=== PATIENT | female | born 1950 | race Caucasian/White ===

== ENCOUNTER 2018-12-09 11:21 | Emergency (ER) | payer OTHER ==
--- OUTSIDE RECORDS SUMMARY | 2018-12-09 11:27 | XMS REPORT ---
:1950 Author Organization eClinicalWorks Care Team Providers Name Role Phone Srinivasa Fagan Provider Role Unavailable Allergies, Adverse Reactions, Alerts Substance Reaction Event Type Latex Info Not Available Drug Allergy Problems Problem Type Condition Code Onset Dates Condition Status Assessment Primary osteoarthritis of right M17.11 Active knee Assessment Pain, joint, knee, right M25.561 Active Assessment Morbid (severe) obesity due to E66.01 Active excess calories Assessment Body mass index (BMI) of 40.0-44.9 Z68.41 Active in adult Assessment Right sided sciatica M54.31 Active Problem Body mass index (BMI) of 40.0-44.9 Z68.41 Active in adult Problem Right sided sciatica M54.31 Active Problem Morbid (severe) obesity due to E66.01 Active excess calories Problem Pain, joint, knee, left M25.562 Active Problem Pain, joint, knee, right M25.561 Active Problem Primary osteoarthritis of left knee M17.12 Active Problem Primary osteoarthritis of right M17.11 Active knee Medications Medication Code Code Instructions Start End Date Status Dosage System Date Atorvastatin [facility] 99016-14 Active not defined Calcium 57-98 Cyclobenzaprine HCl NDC 0 Active not defined Duloxetine HCl [facility] 86685-81 Active not defined 50-[address] [facility] 66070-38 Active not defined 06-01 Pantoprazole Sodium [facility] 58508-66 Active not defined 84-01 Metformin HCl [facility] 68328-90 Active not defined 08-01 VESIcare [facility] 51849-60 Active not defined 51-01 Amlodipine Besylate NDC 0 [place] [address]-39 Active not defined 20-01 [place] [address]-80 Active not defined 20-01 Aspir-[address] [facility] 83867-65 Active not defined 27-26 Results No Known Results Summary Purpose eClinicalWorks Submission
--- OUTSIDE RECORDS SUMMARY | 2018-12-09 11:27 | XMS REPORT ---
[...] Start End Date Status Dosage System Date Duloxetine HCl [facility] 38738-45 Active not defined 50-33 VESIcare [facility] 73178-48 Active not defined 51-01 Metformin HCl [facility] 63591-04 Active not defined 08-01 Pantoprazole Sodium [facility] 87892-69 Active not defined 84-01 Amlodipine Besylate NDC 0 Active not defined Lyrica [facility] 99271-45 Active not defined 20-01 Atorvastatin [facility] 20576-23 Active not defined Calcium 57-98 Cyclobenzaprine HCl NDC 0 Active not defined Aspir-81 [facility] 56097-67 Active not defined 27-[address] [facility] 03739-89 Active not defined 06-01 Spironolactone [facility] 32211-50 Active not defined 20-01 Results No Known Results Summary Purpose eClinicalWorks Submission
--- OUTSIDE RECORDS SUMMARY | 2018-12-09 11:27 | XMS REPORT ---
:1950 Author Organization e[employer]Works Care Team Providers Name Role Phone Fagan Srinivasa Provider Role Unavailable Allergies, Adverse Reactions, Alerts Substance Reaction Event Type Latex Info Not Available Drug Allergy Problems Problem Type Condition Code Onset Dates Condition Status Assessment Right sided sciatica M54.31 Active Assessment Primary osteoarthritis of right M17.11 Active knee Assessment Primary osteoarthritis of left knee M17.12 Active Assessment Pain, joint, knee, left M25.562 Active Problem Pain, joint, knee, right M25.561 Active Problem Primary osteoarthritis of left knee M17.12 Active Problem Pain, joint, knee, left M25.562 Active Assessment Pain, joint, knee, right M25.561 Active Problem Primary osteoarthritis of right M17.11 Active knee Problem Right sided sciatica M54.31 Active Medications Medication Code Code Instructions Start End Date Status Dosage System Date Atorvastatin [facility] 80544-58 Active not defined Calcium 57-98 Pantoprazole Sodium [facility] 08773-90 Active not defined 84-[address] [facility] 22655-62 Active not defined 20-[address] [facility] 17657-61 Active not defined 20-01 Cyclobenzaprine HCl NDC 0 Active not defined VESIcare [facility] 30160-85 Active not defined 51-01 Amlodipine Besylate NDC 0 Active not defined Naproxen DR [facility] 57320-22 Active not defined 06-01 Aspir-[address] [facility] 38683-72 Active not defined 27-[address] [facility] 23227-74 Active not defined 08-[address] [facility] 49237-63 Active not defined 50-33 Results No Known Results Summary Purpose eClinicalWorks Submission
--- OUTSIDE RECORDS SUMMARY | 2018-12-09 11:27 | XMS REPORT ---
:1950 Author Organization [employer]Works Care Team Providers Name Role Phone Srinivasa Fagan Provider Role Unavailable Allergies No Known Allergies Problems Problem Type Condition Code Onset Dates Condition Status Problem Pain, joint, knee, right M25.561 Active Problem Primary osteoarthritis of left knee M17.12 Active Problem Pain, joint, knee, left M25.562 Active Problem Primary osteoarthritis of right M17.11 Active knee Problem Right sided sciatica M54.31 Active Medications No Known Medications Results No Known Results Summary Purpose [employer] Submission
--- OUTSIDE RECORDS SUMMARY | 2018-12-09 11:27 | XMS REPORT ---
:1950 Author Organization eClinicalWorks Care Team Providers Name Role Phone Srinivasa Fagan Provider Role Unavailable Allergies, Adverse Reactions, Alerts Substance Reaction Event Type Latex Info Not Available Drug Allergy Problems Problem Type Condition Code Onset Dates Condition Status Assessment Morbid (severe) obesity due to E66.01 Active excess calories Assessment Body mass index (BMI) of 40.0-44.9 Z68.41 Active in adult Assessment Primary osteoarthritis of right M17.11 Active knee Assessment Primary osteoarthritis of left knee M17.12 Active Assessment Pain, joint, knee, right M25.561 Active Assessment Pain, joint, knee, left M25.562 Active Problem Body mass index (BMI) of [...] End Date Status Dosage System Date Atorvastatin [facility] 06533-96 Active not defined Calcium 57-[address] [facility] 54541-23 Active not defined 06-01 VESIcare [facility] 58129-20 Active not defined 51-01 Aspir-81 [facility] 12843-15 Active not defined 27-26 Cyclobenzaprine HCl NDC 0 Active not defined Duloxetine HCl [facility] 19124-88 Active not defined 50-33 Lyrica [facility] 18031-62 Active not defined 20-01 Amlodipine Besylate NDC 0 Active not defined Spironolactone [facility] 03299-20 Active not defined 20-01 Metformin HCl [facility] 36150-17 Active not defined 08-01 Pantoprazole Sodium [facility] 90263-92 Active not defined 84-01 Results No Known Results Summary Purpose eClinicalWorks Submission
--- OUTSIDE RECORDS SUMMARY | 2018-12-09 11:27 | XMS REPORT ---
[...] Start End Date Status Dosage System Date VESIcare [facility] 52877-05 Active not defined 51-01 Amlodipine Besylate NDC 0 Active not defined Metformin HCl [facility] 15454-45 Active not defined 08-01 Atorvastatin [facility] 36757-15 Active not defined Calcium 57-98 Lyrica [facility] 38030-78 Active not defined 20-01 Spironolactone [facility] 70547-63 Active not defined 20-01 Cyclobenzaprine HCl NDC 0 Active not defined Pantoprazole Sodium [facility] 08132-93 Active not defined 84-[address] [facility] 15185-87 Active not defined 06-01 Duloxetine HCl [facility] 96842-01 Active not defined 50-33 Aspir-81 [facility] 31088-78 Active not defined 27-26 Results No Known Results Summary Purpose eClinicalWorks Submission
[2018-12-09 12:18] LABS: Absolute Lymphocytes (CBC) 0.9 K/uL (0.7-4.9); Absolute Monocytes 0.7 K/uL (0.1-1.3); Absolute Neutrophil 11.2 K/uL (1.8-8.0); Basophils % 0.4 % (0-1.3); Eosinophils % 1.8 % (0-4.4); Hematocrit 39.5 % (36.0-45.0); Lymphocytes % 6.6 % (15.3-44.8); MPV 8.1 fL (7.6-11.3); Monocytes % 5.5 % (3.3-12.3); RBC Red Blood Cell Count 4.42 M/uL (3.86-4.86)
[2018-12-09] MEDS ORDERED: DEXAMETHASONE 10 MG/ML VIAL ONE (12:18)
[2018-12-09] MEDS ORDERED: MEPERIDINE HCL 25 MG/0.5 ML ONE ×2 (12:18→14:55)
[2018-12-09 12:35] LABS: Blood Morphology Comment NOT SEEN (NOT SEEN); Platelet Estimate ADEQ
[2018-12-09] MEDS ORDERED: ACETAMINOPHEN 325 MG TABLET ONE (13:34)
--- NOTE | 2018-12-09 13:40 | RAD REPORT ---
EXAM DESCRIPTION: CT - C Spine Wo Con - 12/09/2018 1:07 pm CLINICAL HISTORY: Pain, numbness and tingling, fall history COMPARISON: None. TECHNIQUE: Axial 2 mm thick images of the cervical spine were obtained with sagittal and coronal rec onstruction images generated and reviewed. All CT scans are performed using dose optimization technique as appropriate and may include automated exposure control or mA/KV adjustment according to patient size. FINDINGS: Cervical bodies are normal in height. Slight reversal of the usual cervical lordosis with the apex at C5-6. C5-6 and C6-7 disc space narrowing with endplate spurring. Degenerative change pres ent at the dens C1 level. Left bony foraminal encroachment C3-4 from facet hypertrophy. Facet degener ative changes are present throughout the cervical spine. There is significant bony foraminal encroach ment on the right at C5-6 and [id number] bilateral C6-7 foraminal encroachment. No fracture or acute bony abnormality. No paraspinal mass or hematoma. Central canal detail is inherently limited on CT imaging. IMPRESSION: Cervical spine degenerative change present as detailed. No fracture or acute finding. Central canal detail is inherently limited.
--- NOTE | 2018-12-09 13:44 | RAD REPORT ---
EXAM DESCRIPTION: CT - Thoracic Spine W/o Cont - 12/09/2018 1:07 pm CLINICAL HISTORY: Recurring falls, back pain COMPARISON: None. TECHNIQUE: Axial 2 mm thick images of the cervical spine were obtained with sagittal and coronal rec onstruction images generated and reviewed. All CT scans are performed using dose optimization technique as appropriate and may include automated exposure control or mA/KV adjustment according to patient size. FINDINGS: Thoracic bodies are normal in height and normal in AP alignment. There is a minimal left c onvex curvature across the entire length of the thoracic spine that may be part of a long-standing sc oliosis or a positioning artifact. Mild disc space narrowing seen throughout the thoracic spine. No f racture or acute bony abnormality. No lytic, sclerotic or expansile bony destructive process. Central canal detail is inherently limited. No gross evidence for large disc herniation or canal stenosis. L arge anterior endplate spurs are present T5-T10. No paraspinal mass or hematoma. Central canal detail is inherently limited on CT imaging. No pneumothorax or pleural effusion. Atelectasis changes are present in the lung parenchyma. Imaged p ortions of the ribcage show no acute finding. No mediastinal mass or hematoma. IMPRESSION: Thoracic spine degenerative changes are present primarily T5-T10 region. No fracture or acute bone process seen. No gross evidence for large disc herniation or central canal abnormality. Central canal detail is inh erently limited.
--- NOTE | 2018-12-09 13:48 | RAD REPORT ---
EXAM DESCRIPTION: CT - Spine Lumbar Wo Con - 12/09/2018 1:07 pm CLINICAL HISTORY: Back pain, multiple falls COMPARISON: None. TECHNIQUE: Thin section axial imaging of the lumbar spine was performed. Sagittal and coronal recon struction images were generated and reviewed. All CT scans are performed using dose optimization technique as appropriate and may include automated exposure control or mA/KV adjustment according to patient size. FINDINGS: Lumbar bodies are normal in height. A very slight subluxation of L4 on L5 noted and slight retrolisthesis of L1 on L2. This is secondary to degenerative change. No compression fracture. No ly tic, sclerotic or expansile bony destructive process. There is no paraspinal mass present. Central canal detail is inherently limited. No gross evidence for disc herniation upper 3 lumbar leve ls. There is a broad-based bulging of disc material L4-5 that extends across the canal and into each exit foramen. Advanced facet joint degenerative change, ligamentous thickening and ligamentous calcificat ions all combine for significant central spinal stenosis and bilateral foraminal stenosis. L5-S1 shows disc space narrowing and degenerative gas in the disc space. There is disc bulge across t he central canal with questionable right paracentral small disc herniation. Central canal of these 2 inherently limited for adequate for thorough assessment. Facet joint degenerative changes are present . There is no central spinal stenosis. IMPRESSION: No fracture. No acute bone finding. L4-5 central spinal stenosis from disc bulge, facet hypertrophy, ligamentous thickening and ligamento us calcification. There is also foraminal stenosis at this level. L5-S1 disc bulge with questionable small right paracentral disc herniation. No central stenosis or fo raminal encroachment.
--- NOTE | 2018-12-09 13:59 | RAD REPORT ---
EXAM DESCRIPTION: RAD - Chest Single View - 12/09/2018 1:10 pm CLINICAL HISTORY: Dyspnea COMPARISON: November 2017 TECHNIQUE: AP portable chest image was obtained 1308 hours . FINDINGS: Portable technique and large body habitus limits detail. No focal lung parenchymal process seen. Heart and vasculature are normal. No measurable pleural effusion and no pneumothorax. No acute bony abnormality seen. No acute aortic findings suspected. IMPRESSION: No acute cardiopulmonary process.
[2018-12-09 14:18] LABS: Urine Blood TRACE (NEG); Urine Glucose NEGATIVE (NEG); Urine Protein 1+ (NEG); Urine pH 5.5 (5.0-7.0)
--- NOTE | 2018-12-09 14:42 | EDPHYS ---
Physician Documentation [facility] Name: Rene Covington Age: 68 yrs Sex: Female : 1950 Arrival Date: 12/09/2018 Time: 11:24 Bed 5 Private MD: Alhaji Haynes ED Physician Ector Kaye HPI: 12/09 11:52 This 68 yrs old Female presents to ER via Wheelchair with complaints of Knee rn Pain, Back Pain. 11:52 The patient presents with pain that is acute. The symptoms are located in the cervical internal controls consultant, thoracic spine and lumbar spine. Onset: The symptoms/episode began/occurred 3 day(s) ago. The pain does not radiate. Associated signs and symptoms: Pertinent positives: none Pertinent negatives: abdominal pain, chest pain, constipation, dysuria, fever, headache, hematuria, incontinence, nausea, numbness, tingling, urinary retention, vomiting, weakness. Modifying factors: The patient symptoms are alleviated by remaining still, the patient symptoms are aggravated by any movement. Severity of symptoms: At their worst the symptoms were mild, in the emergency department the symptoms are unchanged. The patient has experienced similar episodes in the past. Reports back pain, in spine, reports from neck to tailbone, no fever, no trauma, no weakness, no focal neurological complaint, is ambulatory, no new bowel/bladder problems. Reports chronic knee problems, gets injections, walks with cane, back hurts more with twisting and moving.. Historical: - Allergies: 11:51 Codeine; iw 11:51 venom-wasp; iw - Home Meds: 11:51 atorvastatin 20 mg oral tab once daily [Active]; Forskolin 500 mg daily [Active]; iw Garcinia Cambogia 200-500 mcg-mg oral tab daily [Active]; metformin 500 mg Oral tab 1 tab 2 times per day [Active]; cyclobenzaprine 10 mg Oral tab 1 tab 2 times per day [Active]; amlodipine 2.5 mg tab 1 tab once daily [Active]; spironolactone 25 mg Oral tab 1 tab once daily [Active]; Lyrica 75 mg Oral 2 times per day [Active]; aspirin 81 mg Oral TbEC 1 tab once daily [Active]; pantoprazole 40 mg oral TbEC 1 tab once daily [Active]; - PMHx: 11:51 Diabetes - NIDDM; Fibromyalgia; GERD; High Cholesterol; Hypertension; LOW POTASSIUM; iw - PSHx: 11:51 Hernia repair; Hysterectomy; Cholecystectomy; iw - Ebola Screening: : Patient negative for fever greater than or equal to 101.5 degrees Fahrenheit, and additional compatible Ebola Virus Disease symptoms Patient denies exposure to infectious person Patient denies travel to an Ebola-affected area in the 21 days before illness onset No symptoms or risks identified at this time. - Family history:: not pertinent. - Hospitalizations: : No recent hospitalization is reported. ROS: 11:52 Constitutional: Negative for fever, chills, and weight loss, Eyes: Negative for injury, rn pain, redness, and discharge, Neck: Negative for injury, pain, and swelling, Cardiovascular: Negative for chest pain, palpitations, and edema, Respiratory: Negative for shortness of breath, cough, wheezing, and pleuritic chest pain, Abdomen/GI: Negative for abdominal pain, nausea, vomiting, diarrhea, and constipation, Back: + back pain MS/Extremity: Negative for injury and deformity, Skin: Negative for injury, rash, and discoloration, Neuro: Negative for headache, weakness, numbness, tingling, and seizure. Exam: 11:52 Constitutional: This is a well developed, well nourished patient who is awake, alert, rn and in no acute distress. Head/Face: Normocephalic, atraumatic. Eyes: Pupils equal round and reactive to light, extra-ocular motions intact. Lids and lashes normal. Conjunctiva and sclera are non-icteric and not injected. Cornea within normal limits. Periorbital areas with no swelling, redness, or edema. Neck: Trachea midline, no thyromegaly or masses palpated, and no cervical lymphadenopathy. Supple, full range of motion without nuchal rigidity, or vertebral point tenderness. No Meningismus. Abdomen/GI: soft, non-tender Back: + tenderness along entire perispinal region, no stepoff or sign of trauma, no skin changes MS/ Extremity: Pulses equal, no cyanosis. Neurovascular intact. Full, normal range of motion. Equal circumference. Neuro: Awake and alert, GCS 15, oriented to person, place, time, and situation. Cranial nerves II-XII grossly intact. Motor strength 5/5 in all extremities. Sensory grossly intact. Cerebellar exam normal. Vital Signs: 11:50 BP 180 / 78; Pulse 105; Resp 20 S; Temp 100.9(O); Pulse Ox 97% on R/A; Weight 106.59 kg aa5 (R); Height 5 ft. 0 in. (152.40 cm) (R); Pain 6/10; 13:15 BP 154 / 80; Pulse 108; Resp 20 S; Pulse Ox 97% on R/A; aa5 13:15 Temp 101.4(O); aa5 14:30 BP 157 / 79; Pulse 102; Resp 18 S; Temp 99.5(O); Pulse Ox 96% on R/A; Pain 6/10; aa5 11:50 Body Mass Index 45.89 (106.59 kg, 152.40 cm) aa5 13:15 MD notified of increased temperature aa5 MDM: 11:41 Patient medically screened. rn 14:40 Differential diagnosis: arthritis, chronic back pain, Fatigue Osteoarthritis UTI, rn pneumonia. Data reviewed: vital signs, nurses notes, lab test result(s), radiologic studies, CT scan, plain films, and as a result, I will discharge patient. Counseling: I had a detailed discussion with the patient and/or guardian regarding: the historical points, exam findings, and any diagnostic results supporting the discharge/admit diagnosis, lab results, radiology results, the need for outpatient follow up, to return to the emergency department if symptoms worsen or persist or if there are any questions or concerns that arise at home. Response to treatment: the patient's symptoms have markedly improved after treatment, and as a result, I will discharge patient. Special discussion: I discussed with the patient/guardian in detail that at this point there is no indication for admission to the hospital. It is understood, however, that if the symptoms persist or worsen the patient needs to return immediately for re-evaluation. 12/09 11:50 Order name: CBC with Diff; Complete Time: 12:42 rn 12/09 11:50 Order name: Basic Metabolic Panel; Complete Time: 12:32 rn 12/09 11:50 Order name: CT C Spine; Complete Time: 14:00 rn 12/09 12:35 Order name: Manual Differential; Complete Time: 12:42 EDMS 12/09 13:51 Order name: Urine Dipstick--Ancillary (enter results); Complete Time: 14:25 eb 12/09 13:54 Order name: Urine Culture aa5 12/09 11:50 Order name: CT Thoracic Spine Wo Cont; Complete Time: 14:00 rn 12/09 11:50 Order name: CT Lumbar Spine Wo Con; Complete Time: 14:00 rn 12/09 12:43 Order name: XRAY Chest (1 view); Complete Time: 14:00 rn 12/09 11:50 Order name: Urine Dipstick-Ancillary (obtain specimen); Complete Time: 13:51 rn 12/09 11:50 Order name: IV Start; Complete Time: 12:12 rn Administered Medications: 12:15 Drug: Decadron - Dexamethasone 10 mg {Note: 5mg administered to right AC, swelling aa5 noted to site (see IV notes), remaining 5mg administered to right hand at 1220.} Route: IVP; Site: right antecubital; 12:30 Follow up: Response: No adverse reaction aa5 12:20 Drug: Demerol 25 mg Route: IVP; Site: right hand; aa5 12:30 Follow up: Response: No adverse reaction aa5 13:25 Drug: Tylenol 650 mg Route: PO; aa5 14:30 Follow up: Response: No adverse reaction; Temperature is decreased aa5 14:25 Drug: Rocephin - (cefTRIAXone) 1 grams {Note: given slow IVP per pharmacy at this time aa5 .} Route: IVPB; Infused Over: 30 mins; Site: right hand; 14:35 Follow up: Response: No adverse reaction aa5 14:47 Drug: Demerol 25 mg Route: IVP; Site: right hand; aa5 15:00 Follow up: Response: No adverse reaction; Pain is decreased aa5 Disposition: 12/09/18 14:41 Discharged to Home. Impression: Urinary tract infection, site not specified. - Condition is Stable. - Discharge Instructions: Urinary Tract Infection, Adult. - Prescriptions for Cyclobenzaprine 10 mg Oral Tablet - take 1 tablet by ORAL route every 8 hours As needed; 20 tablet. cefpodoxime 100 mg Oral Tablet - take 2 tablet by ORAL route every 12 hours for 10 days take with food; 40 tablet. - Medication Reconciliation Form, Thank You Letter, Antibiotic Education, Prescription Opioid Use form. - Follow up: Alhaji Haynes MD; When: 2 - 3 days; Reason: Recheck today's complaints, Re-evaluation by your physician. - Problem is new. - Symptoms have improved. Signatures: Dispatcher [employer] Charley Myrick RN RN iw Nieto, Roman, MD MD rn Calderon, Audri, RN RN aa5 Corrections: (The following items were deleted from the chart) 15:11 14:41 12/09/2018 14:41 Discharged to Home. Impression: Urinary tract infection, site aa5 not specified. Condition is Stable. Forms are Medication Reconciliation Form, Thank You Letter, Antibiotic Education, Prescription Opioid Use. Follow up: Alhaji Haynes; When: 2 - 3 days; Reason: Recheck today's complaints, Re-evaluation by your physician. Problem is new. Symptoms have improved. rn
--- NOTE | 2018-12-09 14:42 | ER ---
Nurse's Notes [facility] Name: Rene Covington Age: 68 yrs Sex: Female : 1950 Arrival Date: 12/09/2018 Time: 11:24 Bed 5 Private MD: Alhaji Haynes Diagnosis: Urinary tract infection, site not specified Presentation: 12/09 11:44 Presenting complaint: Patient states: ozzie knee pain since June after she had a fall, iw also c/o pain from neck to tailbone since June but has gotten worse over past 3 days, also c/o numbness to fingertips in both hands. Transition of care: patient was not received from another setting of care. Onset of symptoms was December 05, 2018. Risk Assessment: Do you want to hurt yourself or someone else? Patient reports no desire to harm self or others. Initial Sepsis Screen: Does the patient meet any 2 criteria? No. Patient's initial sepsis screen is negative. Does the patient have a suspected source of infection? No. Patient's initial sepsis screen is negative. Care prior to arrival: None. 11:44 Method Of Arrival: Wheelchair iw 11:44 Acuity: GLORY 3 iw Historical: - Allergies: 11:51 Codeine; iw 11:51 venom-wasp; iw - Home Meds: 11:51 atorvastatin 20 mg oral tab once daily [Active]; Forskolin 500 mg daily [Active]; iw Garcinia Cambogia 200-500 mcg-mg oral tab daily [Active]; metformin 500 mg Oral tab 1 tab 2 times per day [Active]; cyclobenzaprine 10 mg Oral tab 1 tab 2 times per day [Active]; amlodipine 2.5 mg tab 1 tab once daily [Active]; spironolactone 25 mg Oral tab 1 tab once daily [Active]; Lyrica 75 mg Oral 2 times per day [Active]; aspirin 81 mg Oral TbEC 1 tab once daily [Active]; pantoprazole 40 mg oral TbEC 1 tab once daily [Active]; - PMHx: 11:51 Diabetes - NIDDM; Fibromyalgia; GERD; High Cholesterol; Hypertension; LOW POTASSIUM; iw - PSHx: 11:51 Hernia repair; Hysterectomy; Cholecystectomy; iw - Ebola Screening: : Patient negative for fever greater than or equal to 101.5 degrees Fahrenheit, and additional compatible Ebola Virus Disease symptoms Patient denies exposure to infectious person Patient denies travel to an Ebola-affected area in the 21 days before illness onset No symptoms or risks identified at this time. - Family history:: not pertinent. - Hospitalizations: : No recent hospitalization is reported. Screenin:00 Abuse screen: Denies threats or abuse. Nutritional screening: No deficits noted. aa5 Tuberculosis screening: No symptoms or risk factors identified. 12:20 Fall Risk Fall in past 12 months (25 points). IV access (20 points). Total Styles Fall aa5 Scale indicates High Risk Score (45 or more points). Fall prevention measures have been instituted. Side Rails Up X 2 Placed Close to Nursing Station. Assessment: 11:56 General: Appears uncomfortable, Behavior is calm, cooperative, Reports chills for 0-12 aa5 hours. Pain: Complains of pain in thoracic area and lumbar area Pain does not radiate. Pain currently is 6 out of 10 on a pain scale. Quality of pain is described as sharp, shooting, Pain began 2-3 days ago. Is continuous, Aggravated by increased activity. Neuro: Level of Consciousness is awake, alert, obeys commands, Oriented to person, place, time, situation. Cardiovascular: Heart tones S1 S2 present Rhythm is regular. Respiratory: Airway is patent Respiratory effort is even, unlabored, Respiratory pattern is regular, symmetrical, Breath sounds are clear bilaterally. GI: Abdomen is obese, Bowel sounds present X 4 quads. Abd is soft and non tender X 4 quads. Patient currently denies abdominal pain, diarrhea, nausea, vomiting. : No signs and/or symptoms were reported regarding the genitourinary system. EENT: No signs and/or symptoms were reported regarding the EENT system. Derm: Skin is pink, warm \\T\\ dry. Musculoskeletal: Range of motion: intact in all extremities, Pt denies recent fall. Pt reports she has been taking cyclobenzaprine as needed for knee pain since fall in June 2018. 12:30 Reassessment: Patient is alert, oriented x 3, equal unlabored respirations, skin aa5 warm/dry/pink. Pt taken to CT . 13:15 Reassessment: Pt back from CT. Pt states feeling better, rates pain 4/10 on a pain aa5 scale. . 13:15 Reassessment: Patient is alert, oriented x 3, equal unlabored respirations, skin aa5 warm/dry/pink. Pt appears comfortable sitting up in bed. Pt's at bedside. . 14:35 Reassessment: Patient is alert, oriented x 3, equal unlabored respirations, skin aa5 warm/dry/pink. Pt states "can I get something for the pain before I go home?". Dr. Kaye notified. . 15:00 Reassessment: Patient is alert, oriented x 3, equal unlabored respirations, skin aa5 warm/dry/pink. Patient states feeling better. Pain: Pain currently is 3 out of 10 on a pain scale. Vital Signs: 11:50 BP 180 / 78; Pulse 105; Resp 20 S; Temp 100.9(O); Pulse Ox 97% on R/A; Weight 106.59 kg aa5 (R); Height 5 ft. 0 in. (152.40 cm) (R); Pain 6/10; 13:15 BP 154 / 80; Pulse 108; Resp 20 S; Pulse Ox 97% on R/A; aa5 13:15 Temp 101.4(O); aa5 14:30 BP 157 / 79; Pulse 102; Resp 18 S; Temp 99.5(O); Pulse Ox 96% on R/A; Pain 6/10; aa5 11:50 Body Mass Index 45.89 (106.59 kg, 152.40 cm) aa5 13:15 MD notified of increased temperature aa5 ED Course: 11:24 Patient arrived in ED. ss4 11:24 Alhaji Haynes MD is Private Physician. ss4 11:41 Ector Kaye MD is Attending Physician. rn 11:45 Triage completed. iw 11:50 Patient has correct armband on for positive identification. Placed in gown. Bed in low aa5 position. Call light in reach. Side rails up X2. 11:50 Arm band placed on. aa5 11:55 Latrice Washington, RICHIE is Primary Nurse. aa5 12:12 Initial lab(s) drawn, by me, sent to lab. Inserted saline lock: 22 gauge in right jb1 antecubital area, using aseptic technique. Blood collected. 12:15 intact, bleeding controlled, Pressure dressing applied, Swelling noted to 22 G to R AC aa5 and IV was dc'd. 12:18 Missed attempt(s): 22 gauge in right forearm. Bleeding controlled, band aid applied, aa5 catheter tip intact. 12:20 Inserted saline lock: 24 gauge in right hand, using aseptic technique. aa5 12:24 Radiology exam delayed due to NURSE TO CALL WHEN PT IS READY. mw3 13:07 CT C Spine In Process Unspecified. EDMS 13:07 CT Thoracic Spine Wo Cont In Process Unspecified. EDMS 13:07 CT Lumbar Spine Wo Con In Process Unspecified. EDMS 13:07 CT completed. Patient tolerated procedure well. Patient moved to radiology. mw3 13:09 XRAY Chest (1 view) In Process Unspecified. EDMS 13:28 No provider procedures requiring assistance completed. aa5 14:41 Alhaji Haynes MD is Referral Physician. rn 15:00 IV discontinued, intact, bleeding controlled, No redness/swelling at site. Pressure aa5 dressing applied, 24 G to right hand dc'd. Administered Medications: 12:15 Drug: Decadron - Dexamethasone 10 mg {Note: 5mg administered to right AC, swelling aa5 noted to site (see IV notes), remaining 5mg administered to right hand at 1220.} Route: IVP; Site: right antecubital; 12:30 Follow up: Response: No adverse reaction aa5 12:20 Drug: Demerol 25 mg Route: IVP; Site: right hand; aa5 12:30 Follow up: Response: No adverse reaction aa5 13:25 Drug: Tylenol 650 mg Route: PO; aa5 14:30 Follow up: Response: No adverse reaction; Temperature is decreased aa5 14:25 Drug: Rocephin - (cefTRIAXone) 1 grams {Note: given slow IVP per pharmacy at this time aa5 .} Route: IVPB; Infused Over: 30 mins; Site: right hand; 14:35 Follow up: Response: No adverse reaction aa5 14:47 Drug: Demerol 25 mg Route: IVP; Site: right hand; aa5 15:00 Follow up: Response: No adverse reaction; Pain is decreased aa5 Outcome: 14:41 Discharge ordered by MD. rn 15:00 Discharged to home ambulatory, with cane, with aa5 15:00 Condition: improved 15:00 Discharge instructions given to Pt and pt's Instructed on discharge instructions, follow up and referral plans. medication usage, Demonstrated understanding of instructions, follow-up care, medications, Prescriptions given X 2. 15:05 Patient left the ED. aa5 Addendum: 12/11/2018 10:33 Addendum: Culture Results: Positive urine culture. No further action required. Other: s s No follow up needed per Celeste Agarwal NP. Sensitive to cephalosporins. . Bacteria is resistant to, has intermediate sensitivity, or is not tested against prescribed antibiotics. Report given to JOSÉ LUIS for further evaluation and then to physical education teacher for follow up with patient. Signatures: Dispatcher [employer] EDMS Teja Cornell jb1 Charley Navarro RN RN iw Nieto, Roman, MD MD rn Calderon, Audri, RN RN aa5 Maria Teresa Zavala RN RN ss Willis, Michelle 3 Maria De Jesus Worley ss4 Corrections: (The following items were deleted from the chart) 12/09 13:25 13:15 Temp 101.4F Oral; aa5 aa5 13:29 11:56 General: Appears uncomfortable, Behavior is calm, cooperative, aa5 aa5 13:29 13:15 Reassessment: Patient is alert, oriented x 3, equal unlabored respirations, skin aa5 warm/dry/pink. aa5 15:12 15:11 Patient left the ED. aa5 aa5
[2018-12-09] MEDS ORDERED: CEFTRIAXONE/SWI 1gm 1 GM/10 ML SYR ONE (14:45)
[2018-12-09 15:21] VITALS: BP 157/79; TEMP 99.5; O2SAT 96
== END 2018-12-09 15:11 | disposition home or self-care (01) ==
LOC: ER 11:21
DX: N39.0 Urinary tract infection, site not specified (principal); E11.9 Type 2 diabetes mellitus without complications; K21.9 Gastro-esophageal reflux disease without esophagitis; E78.00 Pure hypercholesterolemia, unspecified; I10 Essential (primary) hypertension; Z79.84 Long term (current) use of oral hypoglycemic drugs; Z88.5 Allergy status to narcotic agent; Z91.09 Other allergy status, other than to drugs and biological substances
CPT/HCPCS: 87088; 85025; 87086; 80048; 36415; 87077; 87186; 81003; 72131; 72125; 72128; 71045; 99284; J1100; J2175 ×2; J0696